=== PATIENT | female | born 1965 | race Caucasian/White ===

== ENCOUNTER → 2017-11-24 | Outpatient (CLI) | payer OTHER, MEDICAID ==
[~2017-11-24] MED LIST: ACETAMINOPHEN325 M1 PO; ALDACTONE50 MG PO; AMBIEN PO; AUGMENTIN 875875 MG PO; AVELOX 400 MG400 MG PO; AVELOX400 MG PO; AZITHROMYCIN 2250 MG PO; BENTYL10 MG PO; BOOST237 M1 PO; BYSTOLIC 5 MG5 M1; BYSTOLIC 5 MG5 M1 PO; CARAFATE 1 GM TA1 GM; CEFTIN500 MG PO; CLEOCIN HCL300 MG PO; CONSTULOSE10 GM/152; DAZIDOX10 MG PO; DESYREL50 MG PO; EFFEXOR XR150 MG PO; FLAGYL500 MG PO; HYOSCYAMINE0.15 M1 PO; IBUPROFEN 800800 M1 GT; INVOKANA100 MG PO; KEFLEX500 MG PO; LACTULOSE PO; LASIX 20 MG TAB20 MG PO; LASIX 40 MG TAB40 M1 PO; LEVAQUIN 750 M750 MG PO; LEVOTHYROXIN0.025 MG PO; NEXIUM40 MG; NORCO 5-325 TA1 EACH PO; NOVOLOG100 UNIT/1 SUBQ; OMEPRAZOLE; ONGLYZA5 MG PO; OXYCODONE HCL 55 MG PO; OXYCODONE HCL5 M1 PO; PREDNISONE 20 M20 MG PO; PRILOSEC 20 MG20 MG PO; PROZAC 10 MG CA10 MG PO; SEROQUEL; SPIRONOLACTONE; TESSALON PERLE100 MG PO; VANCOMYCIN100 MG/M1 PO; VICTOZA0.6 MG/0.1; VICTOZA0.6 MG/0.1 SQ; XANAX 0.5 MG0.5 M1 PO; XANAX 1 MG TABLE1 MG PO; XANAX XR1 MG PO; XANAX1 MG PO; XIFAXAN550 M1 PO; XIFAXAN550 MG PO; ZANTAC PO; ZOFRAN 4 MG ORAL4 M1 DIS; ZOFRAN4 MG PO; ZPAK PO; victoza
== END ==
LOC: M.RAD 13:09
DX: Z12.31 Encounter for screening mammogram for malignant neoplasm of breast (principal); G89.29 Other chronic pain; M25.552 Pain in left hip; M25.352 Other instability, left hip

== ENCOUNTER → 2017-12-09 | Outpatient (CLI) | payer OTHER, MEDICAID | END | disposition home or self-care (01) | LOC: M.RAD 11-24 15:18 | DX: S73.192A Other sprain of left hip, initial encounter (principal); K21.0 Gastro-esophageal reflux disease with esophagitis; W19.XXXA Unspecified fall, initial encounter; Y93.89 Activity, other specified; Y92.89 Other specified places as the place of occurrence of the external cause; Y99.8 Other external cause status; Z88.6 Allergy status to analgesic agent; Z91.048 Other nonmedicinal substance allergy status ==

== ENCOUNTER → 2018-08-16 | Outpatient (CLI) | payer OTHER, MEDICAID | LOC: M.ULTRA 07-15 14:00 | DX: Z09 Encounter for follow-up examination after completed treatment for conditions other than malignant neoplasm (principal); N63.11 Unspecified lump in the right breast, upper outer quadrant; N63.22 Unspecified lump in the left breast, upper inner quadrant; E03.9 Hypothyroidism, unspecified; E11.9 Type 2 diabetes mellitus without complications; J44.9 Chronic obstructive pulmonary disease, unspecified; E66.01 Morbid (severe) obesity due to excess calories; I10 Essential (primary) hypertension; K21.9 Gastro-esophageal reflux disease without esophagitis; Z87.891 Personal history of nicotine dependence ==

== ENCOUNTER → 2018-08-24 | Outpatient (CLI) | payer OTHER, MEDICAID ==
--- NOTE | 2018-08-31 11:08 | PATH ---
[address] [address] PATHOLOGY RPT PROCEDURE Name: ANNAMARIA CANELA Room: [facility] Rohit#: [id number] Admission: 08/24/18 Date of : 63 Discharge: Report #: [id number] Path Case #: [id number] [facility] Accession Number: [id number] . 01 Material submitted: . PART A: RIGHT BREAST 1:00, 2 CM FN PART B: LEFT BREAST 9:00, 2 CM FN . 01 Clinician provided ICD-10: N63.10 N63.20 . 01 Clinical history: . A: 1.3 x 2.5 x 0.8 cm 1:00 2 cm FN B: 1.3 x 1.3 x 0.7 cm 9:00 2 cm FN . 02 Diagnosis: A. Right breast, 1:00, 2 cm from nipple, image-guided core biopsies: - Benign breast tissue with usual ductal epithelial hyperplasia, pseudoangiomatous stromal hyperplasia and luminal calcifications, negative for atypia. See comment. . B. Left breast, 9:00, 2 cm from nipple, image-guided core biopsies: - Benign breast tissue with usual ductal epithelial hyperplasia, prominent fibrosis, mild chronic inflammation and luminal calcifications, negative for atypia. See comment. (NIKOLAI:kylee; 08/25/2018) QMS/08/25/2018 . 02 Comment: Specimens A and B reviewed with Dr. Matheus Dong who agrees with the diagnoses. (NIKOLAI:kylee; 08/25/2018) . 02 Electronically signed: . Kevin Heredia MD, Pathologist NPI- [id number] . 01 Gross description: . A. The specimen is received in formalin, labeled "Annamaria Canela, right breast 1:00 2 cm FN" and consists of multiple needle cores of yellow-vogel tissue measuring between 0.3 cm and 1.6 cm in length and ranging from 0.1-0.3 cm in diameter. They are entirely submitted in A1-A2. The specimen was drawn on 08/24/18 at 9:40 AM and placed in formalin at 9:44 AM. The cold ischemic time is 4 minutes and the total formalin fixation time is greater than 6 hours but less than 72 hours. . B. The specimen is received in formalin, labeled "CanelaYanyAnnamaria, [place] [id number] PATHOLOGY RPT PROCEDURE Name: ANNAMARIA CANELA [id number]mission: 08/24/18 Date of : 63 Discharge: Report #: [id number] Path Case #: [id number] breast 9:00 2 cm FN" and consists of multiple needle cores of yellow-vogel tissue measuring between 0.1 cm and 1.7 cm in length and ranging from 0.1-0.4 cm in diameter. They are entirely submitted in B1-B3. The specimen was drawn at 9:17 AM on 08/24/18 and placed in formalin at 9:21 AM. The cold ischemic time is 4 minutes and the total formalin fixation time is greater than 6 hours but less than 72 hours. (SDY; 08/24/2018) SYU/SYU . 02 Pathologist provided ICD-10: N62, N61.0 . 02 CPT . 343268, [id number] Specimen Comment: A courtesy copy of this report has been sent to Specimen Comment: [phone], , , . Specimen Comment: Report sent to ,DR YOST,DR FLOREZ / DR BURT Performed at: 01 [facility] [address], [place], [place] [id number] MD Wilton Pritchett MD Phone: [phone] Performed at: [address] [facility] [address] [id number] MD Kevin Heredia MD Phone: [phone]
== END | disposition home or self-care (01) ==
LOC: M.ULTRA 08:05
DX: D24.1 Benign neoplasm of right breast (principal); D24.2 Benign neoplasm of left breast; N60.92 Unspecified benign mammary dysplasia of left breast; N60.91 Unspecified benign mammary dysplasia of right breast; N60.32 Fibrosclerosis of left breast; N60.31 Fibrosclerosis of right breast; N61.0 Mastitis without abscess; R92.1 Mammographic calcification found on diagnostic imaging of breast; Z88.8 Allergy status to other drugs, medicaments and biological substances; Z79.899 Other long term (current) drug therapy